=== PATIENT | male | born 1960 | race African-American/Black ===

== ENCOUNTER 2019-01-28 00:48 | Emergency (ER) | payer SELFPAY ==
[2019-01-28] MEDS ORDERED: EPINEPHrine 1 MG/10 ML Abboject SYRINGE ONE (01:00)
== END 2019-01-28 01:00 | disposition expired ==
LOC: EDBD 00:48 → ERS 00:48
DX: I46.9 Cardiac arrest, cause unspecified (principal)
CPT/HCPCS: 92950; 96374; J0171